=== PATIENT | female | born 2000 | race Caucasian/White ===

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

== ENCOUNTER → 2021-04-30 | Outpatient (CLI) | payer OTHER | LOC: COL.RAD 13:20 | DX: N93.8 Other specified abnormal uterine and vaginal bleeding (principal) ==

== ENCOUNTER 2022-03-27 14:27 | Inpatient (IN) | payer OTHER, MEDICAID ==
[~2022-03-27] VITALS: Ht 165.1 cm; Wt 81.6 kg
[2022-03-27] VITALS (25 sets, daily range): BP systolic 108–149; BP diastolic 58–83; PULSE 57–108; TEMP 98.1–98.7
--- NOTE | 2022-03-27 14:45 | NUR ---
Patient ambulatory to LR1 with spouse, changed into gown, FHR/TOCO monitors placed and explained. Patient states she started deanne yesterday afternoon and have continued since then and have gotten stronger. Denies any leaking of fluid, vaginal bleeding, decreased movement. Plan of care discussed. SVE-2 Dr. Adame called and notified. See physician notification.
[2022-03-27] MEDS ORDERED: EUTHYROX75 MCG PO (14:56)
[2022-03-27] MEDS ORDERED: PRENATAL TABLET PO (14:57)
--- NOTE | 2022-03-27 15:50 | NUR ---
SVE- and patient updated on plan of care. Admit orders received from Dr. Adame. 1605: IV started per Mily Fontaine RN, blood obtained and to lab, flushed. 163: Dr. Adame at bedside and assessing patient and FHR strip. Plan of care discussed. 1638: SVE per physician and AROM at this time with clear fluid noted. Plan of care discussed. 165: Patient off monitor to ambulate and moved to LR2. 174: Patient back on monitors. 1809: Patient requesting epidural and Micheline Linda DIRECTOR STRATEGIC ACCOUNT MANAGEMENT notified. LR bolus started 1814: Graham ELIAS given bedside report and assumes care of patient.
[2022-03-27 16:35] LABS: BASO % 0.3 % (0.0-2.0); EOS # 0.2 K/mm3 (0.0-0.7); EOS % 1.5 % (0.0-4.0); GRAN # 8.2 K/mm3 (1.4-6.5); GRAN % 71.8 % (42.2-75.2); HEMATOCRIT 38.3 % (37.0-47.0); HEMOGLOBIN 12.8 g/dl (12.5-16.0); LYMPH # 1.9 K/mm3 (1.2-3.4); LYMPH % 16.9 % (20.0-51.0); MEAN CELL VOLUME 91 fl (80.0-100.0); MEAN CORPUSCULAR HEMOGLOBIN 31 pg (27-31); MEAN CORPUSCULAR HGB CONC 33 g/dl (33.0-37.0); MONO % 8.8 % (1.7-9.3); PLATELET COUNT 292 K/mm3 (130-400); RED BLOOD COUNT 4.19 M/mm3 (4.10-5.30); REDCELL DISTRIBUTION WIDTH-CV 13.5 % (11.5-14.5)
--- NOTE | 2022-03-27 18:15 | NUR ---
This RN to bedside. Bedside report from CURT Castro. Pt requesting epidural at this time. US and toco back on. 182 - Trenton Linda CRNA at bedside. Epidural procedure, risks, and benefits reviewed with patient, verbalized understanding. 182 - Pt positioned to sitting on edge of bed. Difficulty tracing FHR due to maternal positioning. 183 - Test dose by NGHIA Rivera. Pt denies adverse reactions. 1840 - Pt positioned to right wedge for comfort. Monitors adjusted. Safety precautions reviewed with patient and spouse. Bed in low and locked positioned. Call light within reach.
--- NOTE | 2022-03-27 19:30 | NUR ---
Norton catheter placed at this time to dependent drainage. Clear, yellow urine out. Secured to leg with statlock. SVE -/-1.
--- NOTE | 2022-03-27 22:30 | NUR ---
Dr. Adame on unit reviewing FHR tracing. Verbal orders to continue laboring down until down with c/section.
[2022-03-28] VITALS (12 sets, daily range): BP systolic 100–153; BP diastolic 57–75; PULSE 57–98; TEMP 97.4–97.7
--- NOTE | 2022-03-28 00:21 | NUR ---
2345 - Pt educated on pushing techniques, verbalized understanding. Pt positioned into footplates. Norton catheter removed without difficulty. Initial push at this time. 0000 - Recurrent Variable decelerations noted with contractions with spontaneous return to baseline. Pt pushing well with contractions. Dr. Adame on unit and called to bedside for delivery. 0007 - Dr. Adame gowned and gloved at perineum. Nursery nurse Jake Jeff at bedside. 0021 - Spontaneous vaginal delivery of viable infant girl. placed to mothers abdomen, care of infant assumed to CURT Juarez. Cord clamped x2 by Dr. Adame and cut by FOB. Cord blood obtained. 0025 - Spontaneous delivery of placenta. Minimal bleeding noted. Fundus firm and at umbilicus. Pitocin started at 333 mL/hr per protocol. Bilateral labial and superficial perineal lacerations repaired by Dr. Adame. Epidural off. 0035 - Pericare provided. Clean chux beneath patient. Ice pack to perineum. Pt repositioned in bed for comfort. recovery started. See physician delivery note.
[2022-03-28] MEDS ORDERED: IBU800 M1 PO (10:53)
[2022-03-29 08:39] VITALS: BP 117/72; PULSE 60; TEMP 98
== END 2022-03-29 16:10 | disposition home or self-care (01) | DRG 807 ==
LOC: LDRO 14:27 → LDR 15:59 → OB 03-28 03:45
PROVIDERS: Obstetrics & Gynecology; ADMIT Student in an Organized Health Care Education/Training Program
PROC: 10E0XZZ Delivery of Products of Conception, External Approach (ICD-10-PCS; principal; 2022-03-27)
PROC: 10907ZC Drainage of Amniotic Fluid, Therapeutic from Products of Conception, Via Natural or Artificial Opening (ICD-10-PCS; 2022-03-27)
PROC: 0HQ9XZZ Repair Perineum Skin, External Approach (ICD-10-PCS; 2022-03-27)
DX: O99.284 Endocrine, nutritional and metabolic diseases complicating childbirth (principal); Z37.0 Single live birth; E03.9 Hypothyroidism, unspecified; O99.344 Other mental disorders complicating childbirth; F32.A Depression, unspecified; E28.2 Polycystic ovarian syndrome; O99.824 Streptococcus B carrier state complicating childbirth; O70.0 First degree perineal laceration during delivery; Z3A.40 40 weeks gestation of pregnancy; Z23 Encounter for immunization
CPT/HCPCS: J2540; J2590; J7120

== ENCOUNTER 2023-10-31 15:43 | Outpatient (CLI) | payer OTHER ==
[~2023-10-31] VITALS: Ht 10.2 cm; Wt 80.0 kg
[~2023-10-31 15:43] MED LIST: EUTHYROX75 MCG PO; IBU800 M1 PO; PRENATAL TABLET PO
--- NOTE | 2023-10-31 16:00 | NUR ---
PT AMBUALTES ONTO THE UNIT WITH SPOUSE FOR A LABOR CHECK.PT DENIES LOF/VB AND REPORTS CONTRACTIONS EVERY 5 MINUTES.PT REPORTS POSITIVE MOVEMENT.POC REVIEWED WITH PT AND ADVISED TO DON INTO GOWN.PT VERBALIZES UNDERSTANDING.
== END 2023-10-31 17:05 | disposition home or self-care (01) ==
LOC: LDRO 15:43 → LDR 15:49 → LDRO 17:05
DX: Z34.93 Encounter for supervision of normal pregnancy, unspecified, third trimester (principal); Z3A.31 31 weeks gestation of pregnancy
CPT/HCPCS: OP